=== PATIENT | female | born 1990 | race African-American/Black ===

== ENCOUNTER 2020-07-26 12:54 | Emergency (ER) | payer BC ==
[~2020-07-26] VITALS: Ht 167.6 cm; Wt 81.6 kg
[2020-07-26 13:07] VITALS: BP_SYST 145
--- NOTE | 2020-07-26 13:10 | NUR ---
AMBULATED TO BED 7
--- NOTE | 2020-07-26 13:15 | NUR ---
Patient is here for evaluation of lower left jaw pain x3 days. She states she has had an abcess for a few months but has never seen a dentist for it.
--- NOTE | 2020-07-26 13:21 | NUR ---
ER Dr. Rene at bedside examining patient.
[2020-07-26] MEDS ORDERED: MORPHINE 2 MG/ML INJ. SYRINGE IM ONE (13:30)
--- NOTE | 2020-07-26 13:34 | NUR ---
Patient verbalized she is calling a ride to take her home.
[2020-07-26 14:05] VITALS: BP_SYST 145
--- NOTE | 2020-07-26 14:05 | NUR ---
Patient given written and verbal discharge instructions and verbalizes understanding. ER MD discussed with patient the results and treatment provided. Patient in stable condition. ID arm band removed. Rx of tramadol,motrin given. Patient educated on pain management and to follow up with PMD. Pain Scale 0/10. Opportunity for questions provided and answered. Medication side effect fact sheet provided.
== END 2020-07-26 14:05 | disposition home or self-care (01) ==
LOC: SED 12:54
DX: K04.7 Periapical abscess without sinus (principal); R03.0 Elevated blood-pressure reading, without diagnosis of hypertension
CPT/HCPCS: 96372; 99283; J2270